=== PATIENT | male | born 1955 | race Caucasian/White ===

== ENCOUNTER 2018-01-02 13:57 | Day surgery (SDC) | payer OTHER ==
[2017-12-28 16:53] LABS: BASOPHILS % (AUTO) 0.6 % (0-1); EOSINOPHILS # (AUTO) 0.2 X10'3 (0-0.9); EOSINOPHILS % (AUTO) 3.4 % (0-6); HEMATOCRIT 39.5 % (42.0-52.0); HEMOGLOBIN 13.6 g/dl (14.0-17.9); LYMPHOCYTES # (AUTO) 1.9 X10'3 (1.1-4.8); LYMPHOCYTES % (AUTO) 28.5 % (21-51); MEAN CORPUSCULAR HEMOGLOBIN 29.4 PG (27.0-31.0); MEAN CORPUSCULAR HGB CONC 34.5 % (33.0-36.5); MEAN CORPUSCULAR VOLUME 85.2 FL (78-98); MEAN PLATELET VOLUME 7.7 FL (7.4-10.4); MONOCYTES # (AUTO) 0.6 X10'3 (0-0.9); MONOCYTES % (AUTO) 8.5 % (2-12); NEUTROPHILS # (AUTO) 3.8 X10'3 (1.8-7.7); PLATELET COUNT 257 X10'3 (140-440); RED BLOOD COUNT 4.64 X10'6 (4.70-6.10); RED CELL DISTRIBUTION WIDTH 14.1 % (11.5-14.5); WHITE BLOOD COUNT 6.5 X10'3 (4.5-11.0)
[2017-12-28 17:17] LABS: ALBUMIN 4.4 G/DL (3.4-5.0); ANION GAP 8 (8-16); BLOOD UREA NITROGEN 21 MG/DL (7-18); BUN/CREATININE RATIO 22.1 (5.4-32.0); CALCIUM 9.3 MG/DL (8.5-10.1); CHLORIDE 105 MMOL/L (99-107); CREATININE 0.95 MG/DL (0.60-1.10); GLUCOSE 91 MG/DL (70-104); SODIUM 140 MMOL/L (135-145); TOTAL CARBON DIOXIDE 27.1 MMOL/L (24-32); eGFR 80 ML/MIN
[2017-12-29 13:01] LABS: PARTIAL THROMBOPLASTIN TIME 27 SECONDS (22-32); PROTHROMBIN TIME 10.5 SECONDS (9.0-12.0)
[2018-01-02] VITALS (9 sets, daily range): BP systolic 114–151; BP diastolic 62–92
[~2018-01-02] VITALS: Ht 180.3 cm; Wt 91.7 kg
[~2018-01-02 13:57] MED LIST: ASPI-611 PO; ATOR80TA PO; CLOP75TA15 PO; GEMF600T3 PO; METO25TA6 PO; VALS80TA2 PO
[2018-01-02] MEDS ORDERED: LORazepam 0.5 MG tablet PO ONE (14:10)
[2018-01-02] MEDS ORDERED: diphenhydrAMINE 25mg capsule PO ONE (14:10)
[2018-01-02] MEDS ORDERED: normal saline 1000ml 1,000 ML IV SCH ×3 (14:10→18:05)
[2018-01-02] MEDS ORDERED: diphenhydrAMINE 25mg capsule PO PRN (14:25)
[2018-01-02] MEDS ORDERED: LORazepam 0.5 MG tablet PO PRN (14:25)
[2018-01-02] MEDS ORDERED: IBUP-75 PO (14:36)
[2018-01-02] MEDS ORDERED: NITR0.4T SL (14:36)
[2018-01-02] MEDS ORDERED: LIDOcaine 1% w/EPI 1:100,000 30ml vial (MDV) ONE (16:14)
[2018-01-02] MEDS ORDERED: iohexol 350MG/ML 100ml bottle IV ONE (16:14)
[2018-01-02] MEDS ORDERED: proCHLORperazine 10 MG/2 ml inj ONE (16:42)
[2018-01-02] MEDS ORDERED: fentaNYL/PF 50MCG/1 ML 2ML syringe ONE (16:43)
[2018-01-02] MEDS ORDERED: midazolam 2 mg/2 ml injection ONE ×2 (16:43→16:51)
[2018-01-02] MEDS ORDERED: heparin 1,000unit/ml 10ml vial 10 ML ONE (17:02)
[2018-01-02] MEDS ORDERED: clopidogrel 300mg tablet ONE (17:17)
[2018-01-02] MEDS ORDERED: ticagrelor 90mg tablet ONE (17:23)
[2018-01-02] MEDS ORDERED: HYDROcodone/acetaminophen 5mg/325mg tablet PO PRN (18:05)
[2018-01-02] MEDS ORDERED: proCHLORperazine 10 MG/2 ml inj IV PRN (18:05)
[2018-01-02] MEDS ORDERED: acetaminophen 325mg tablet PO PRN (18:05)
[2018-01-02] MEDS ORDERED: OXAZEpam 15mg capsule PO PRN (18:05)
[2018-01-02] MEDS ORDERED: HYDROcodone/acetaminophen 10/325mg tab PO PRN (18:05)
[2018-01-02] MEDS ORDERED: ondansetron/PF 4mg/2ml inj IV PRN (18:05)
== END 2018-01-02 20:05 | disposition home or self-care (01) ==
LOC: SSTAY O 13:57
PROVIDERS: ATTEND Internal Medicine Interventional Cardiology
DX: I25.110 Atherosclerotic heart disease of native coronary artery with unstable angina pectoris (principal); I10 Essential (primary) hypertension; E78.5 Hyperlipidemia, unspecified; I25.2 Old myocardial infarction; I65.23 Occlusion and stenosis of bilateral carotid arteries; Z79.1 Long term (current) use of non-steroidal anti-inflammatories (NSAID); Z86.79 Personal history of other diseases of the circulatory system; Z86.74 Personal history of sudden cardiac arrest; Z79.01 Long term (current) use of anticoagulants; Z79.82 Long term (current) use of aspirin; Z87.891 Personal history of nicotine dependence; Z79.899 Other long term (current) drug therapy; Z98.890 Other specified postprocedural states; Z95.5 Presence of coronary angioplasty implant and graft
CPT/HCPCS: 36415; 80048; 85025; 85610; 85730; 93005; 93458; 99152; 99153; A6257; C1725; C1760; C1769; C1874; C9600; J0780; J1644; J2250; J3010; J3490; J7030; Q0163; Q9967; A4620

== ENCOUNTER 2018-07-05 11:13 | Outpatient (CLI) | payer OTHER ==
[~2018-07-05 11:13] MED LIST changes: -GEMF600T3 PO; +GEMF600T4 PO; +IBUP-75 PO; +NITR0.4T SL
[2018-07-05] MEDS ORDERED: iohexol 350MG/ML 100ml bottle IV ONE (11:22)
[2018-07-05] MEDS ORDERED: iohexol 350 MG/ML 50ML vial IV ONE (11:22)
== END 2018-07-05 23:59 | disposition home or self-care (01) ==
LOC: 64 CT 11:13
PROVIDERS: ATTEND Surgery
DX: I71.4 Abdominal aortic aneurysm, without rupture (principal); I25.10 Atherosclerotic heart disease of native coronary artery without angina pectoris; I73.9 Peripheral vascular disease, unspecified
CPT/HCPCS: 75635; Q9967

== ENCOUNTER 2020-01-12 15:06 | Observation (INO) | payer OTHER ==
[~2020-01-12] VITALS: Ht 180.3 cm; Wt 83.3 kg
[2020-01-12] VITALS (10 sets, daily range): BP systolic 106–143; BP diastolic 51–102
[2020-01-12 09:53] LABS: BASOPHILS # (AUTO) 0.1 X10'3 (0-0.2); BASOPHILS % (AUTO) 1.2 % (0-1); EOSINOPHILS # (AUTO) 0.3 X10'3 (0-0.9); EOSINOPHILS % (AUTO) 5.9 % (0-6); HEMATOCRIT 41.2 % (42.0-52.0); HEMOGLOBIN 14.3 g/dl (14.0-17.9); LYMPHOCYTES # (AUTO) 1.7 X10'3 (1.1-4.8); MEAN CORPUSCULAR HGB CONC 34.7 g/dL (33.0-36.5); MEAN CORPUSCULAR VOLUME 83.6 FL (78-98); MEAN PLATELET VOLUME 7.9 FL (7.4-10.4); MONOCYTES # (AUTO) 0.6 X10'3 (0-0.9); MONOCYTES % (AUTO) 9.8 % (2-12); NEUTROPHILS % (AUTO) 53.1 % (42-75); PLATELET COUNT 241 X10'3 (140-440); RED BLOOD COUNT 4.93 X10'6 (4.70-6.10); RED CELL DISTRIBUTION WIDTH 14.2 % (11.5-14.5); WHITE BLOOD COUNT 5.6 X10'3 (4.5-11.0)
[2020-01-12 10:03] LABS: ALBUMIN 4.4 G/DL (3.4-5.0); ANION GAP 10 (8-16); BLOOD UREA NITROGEN 19 MG/DL (7-18); BUN/CREATININE RATIO 15.2 (5.4-32.0); CALCIUM 9.7 MG/DL (8.5-10.1); CHLORIDE 104 MMOL/L (99-107); CREATININE 1.25 MG/DL (0.60-1.10); GLUCOSE 110 MG/DL (70-104); PARTIAL THROMBOPLASTIN TIME 28 SECONDS (22-32); POTASSIUM 3.1 MMOL/L (3.5-5.1); SODIUM 143 MMOL/L (135-145); TOTAL CARBON DIOXIDE 29.1 MMOL/L (24-32); eGFR 58 ML/MIN
[~2020-01-12 15:06] MED LIST changes: -GEMF600T4 PO; +GEMF600T89 PO
[2020-01-12] MEDS ORDERED: normal saline 1,000 ML IV SCH (15:25)
[2020-01-12] MEDS ORDERED: diphenhydrAMINE 25mg capsule PO PRN (15:25)
[2020-01-12] MEDS ORDERED: LORazepam 0.5 MG tablet PO PRN (15:25)
[2020-01-12] MEDS ORDERED: GEMF600T89 PO (15:31)
[2020-01-12] MEDS ORDERED: ROSU40TA PO (15:31)
[2020-01-12] MEDS ORDERED: CLOP75TA15 PO (15:31)
[2020-01-12] MEDS ORDERED: LOSA100T57 PO (15:31)
[2020-01-12] MEDS ORDERED: CHLO25TA10 PO (15:31)
[2020-01-12] MEDS ORDERED: heparin 1,000unit/ml 10ml vial 10 ML ONE (15:44)
[2020-01-12] MEDS ORDERED: iohexol 350MG/ML 100ml bottle IV ONE ×2 (15:44→16:43)
[2020-01-12] MEDS ORDERED: LIDOcaine 1% (10mg/ml)w/preservative injection 20ml MDV ONE (15:44)
[2020-01-12] MEDS ORDERED: phenylephrine 10mg/ml inj. ONE (15:44)
[2020-01-12] MEDS ORDERED: heparin 1,000 UNITS/NS 500ml 500 ML ONE (15:45)
[2020-01-12] MEDS ORDERED: midazolam 2 mg/2 ml injection ONE (15:55)
[2020-01-12] MEDS ORDERED: DOPamine 400mg/D5W 250ml 250 ML IV ONE (15:56)
[2020-01-12] MEDS ORDERED: atropine 0.1mg/ml 10ml syringe ONE (16:44)
[2020-01-12] MEDS ORDERED: clopidogrel 300mg tablet ONE (16:55)
--- NOTE | 2020-01-12 17:20 | NUR ---
Patient arrived to the unit accompanied by short stay personnel. Patient's groin site clear and soft. at the bedside. All belongings accounted for. Telemetry monitoring started. Post op vitals being obtained, will continue to monitor.
[2020-01-12] MEDS ORDERED: hydrALAZINE 20mg/ml inj. IV PRN (17:50)
[2020-01-12] MEDS ORDERED: HYDROcodone/acetaminophen 10/325mg tab PO PRN (17:50)
[2020-01-12] MEDS ORDERED: HYDROcodone/acetaminophen 5mg/325mg tablet PO PRN (17:50)
[2020-01-12] MEDS ORDERED: acetaminophen 325mg tablet PO PRN (17:50)
[2020-01-12] MEDS ORDERED: pseudoephedrine 30mg tablet PO PRN (17:50)
[2020-01-12] MEDS ORDERED: OXAZEpam 15mg capsule PO PRN (17:50)
--- NOTE | 2020-01-12 18:24 | NUR ---
Patient in room . I have received report from HEAVEN Melendez and had the opportunity to ask questions and assume patient care.
--- NOTE | 2020-01-12 18:25 | NUR ---
Problems reprioritized. Patient report given, questions answered & plan of care reviewed with Eleanor COLLADO.
--- NOTE | 2020-01-12 18:25 | NUR ---
Patient in room . I have received report from Nora COLLADO and had the opportunity to ask questions and assume patient care.
--- NOTE | 2020-01-12 19:06 | NUR ---
Upon assessing patients right groin cath site, bleeding and small hematoma formation was noted. Fem stop has been placed on patient right groin cath sight with 60 lbs of pressure. Notified Dr. Mills film rental clerk, he is aware and is ok with this intervention. We will continue to assess cath site.
[2020-01-12] MEDS ORDERED: potassium CL 10mEq/100ml bag 100 ML IV PRN ×2 (19:35)
[2020-01-12] MEDS ORDERED: potassium Cl 20 mEq SR tablet PO PRN (19:35)
[2020-01-12] MEDS: K and/or MAG REPLACEMENT MC SCH (20:00)
[2020-01-12] MEDS: potassium Cl 20 mEq SR tablet PO PRN (21:10)
--- NOTE | 2020-01-13 | NUR ---
Femstop removed from pt. No bleeding at site with removal. Pt sat up with no symptoms and then stood up with nursing at bedside. No symptoms. Pt walked around the unit. Groin site reassessed, no s/sx of bleeding. Will continue to closely monitor.
--- NOTE | 2020-01-13 | NUR ---
Fem stop removed. No signs of bleeding noted. No spread of hematoma or retroperitoneal bleeding noted. Patient BP 113/55. Patient is alert, and walked around the unit without dizziness or lightheadedness. Patient back to bed, will continue to monitor.
[2020-01-13 01:19] VITALS: BP 113/55
[2020-01-13] MEDS: potassium Cl 20 mEq SR tablet PO PRN ×2 (01:23→05:24)
[2020-01-13 02:00] VITALS: BP 114/55
--- NOTE | 2020-01-13 05:26 | NUR ---
I agree with all documentation and medication administration performed by orienting registered nurse Radha.
[2020-01-13] MEDS ORDERED: nitroGLYCERIN 0.4mg SUBLingual tab SL PRN (06:05)
--- NOTE | 2020-01-13 06:07 | NUR ---
Problems reprioritized. Patient report given, questions answered & plan of care reviewed with Nora COLLADO .
--- NOTE | 2020-01-13 06:09 | NUR ---
Problems reprioritized. Patient report given, questions answered & plan of care reviewed with HEAVEN Melendez.
--- NOTE | 2020-01-13 06:23 | NUR ---
Patient in room PCU 3019. I have received report from Eleanor COLLADO and had the opportunity to ask questions and assume patient care.
[2020-01-13] MEDS ORDERED: metoprolol tartrate 25mg tablet PO SCH (08:00)
[2020-01-13] MEDS ORDERED: losartan 50mg tablet PO SCH (08:00)
[2020-01-13] MEDS ORDERED: chlorthalidone 25mg tablet PO SCH (08:00)
[2020-01-13] MEDS: K and/or MAG REPLACEMENT MC SCH (08:00)
[2020-01-13] MEDS ORDERED: clopidogrel 75mg tablet PO SCH (08:00)
[2020-01-13] MEDS ORDERED: gemfibrozil 600mg tablet PO SCH (08:00)
[2020-01-13] MEDS ORDERED: atorvastatin 20mg tablet PO SCH (08:00)
[2020-01-13] MEDS ORDERED: aspirin 81mg tab.chew PO SCH (08:30)
--- NOTE | 2020-01-13 08:30 | NUR ---
Offered to administer patient's morning medication before his discharge, he declined and stated he "would rather take them when I get home for the sake of time"
--- NOTE | 2020-01-13 08:46 | NUR ---
Patient stable for discharge per MD order. All necessary education and information reviewed with patient before signing necessary paperwork. IV discontinued with catheter in tact, quality assurance monitor chassis removed and returned, patient belongings packed up and patient wheeled to lobby by Neeraj VAZQUEZ. His will pick him up. No new Rx.
== END 2020-01-13 08:45 | disposition home or self-care (01) ==
LOC: SSTAY O 15:06 → PCU 3S 19:32 → INTOOBSV 19:32
PROVIDERS: ADMIT Internal Medicine Interventional Cardiology; ATTEND Internal Medicine Interventional Cardiology
DX: I65.23 Occlusion and stenosis of bilateral carotid arteries (principal); I10 Essential (primary) hypertension; I25.10 Atherosclerotic heart disease of native coronary artery without angina pectoris; I25.2 Old myocardial infarction; I71.4 Abdominal aortic aneurysm, without rupture; I71.9 Aortic aneurysm of unspecified site, without rupture; E78.49 Other hyperlipidemia; F17.200 Nicotine dependence, unspecified, uncomplicated; Z95.5 Presence of coronary angioplasty implant and graft; Z79.82 Long term (current) use of aspirin; Z79.02 Long term (current) use of antithrombotics/antiplatelets; Z79.899 Other long term (current) drug therapy
CPT/HCPCS: 36415; 37215; 80048; 85025; 85610; 85730; 93005; C1725; C1769; C1876; C1884; C1887; C1894; G0378; J0461; J1265; J1644; J2001; J2250; J2370; J7030; Q0163; Q9967; 99152; 99153; A4620; A6258

== ENCOUNTER 2023-02-16 11:21 | Emergency (ER) | payer MEDICARE, OTHER ==
[~2023-02-16] VITALS: Ht 180.3 cm; Wt 88.0 kg
[~2023-02-16 11:21] MED LIST changes: -ATOR80TA PO; +CHLO25TA10 PO; -IBUP-75 PO; +LOP25T PO; +LOSA100T58 PO; -METO25TA6 PO; +ROSU40TA PO; -VALS80TA2 PO
[2023-02-16 11:51] LABS: CLARITY,URINE CLOUDY (Clear); COLOR,URINE YELLOW (Yellow); GLUCOSE, URINE NEGATIVE (Neg); KETONES,URINE NEGATIVE (Neg); LEUKOCYTE ESTERASE ,URINE MODERATE (Neg); NITRITES, URINE NEGATIVE (Neg); OCCULT BLOOD,URINE LARGE (Neg); PH,URINE 5.5 (4.8-8.0); PROTEIN,URINE 100 mg/dl (Neg); UROBILINOGEN,URINE 0.2 E.U/dL (0.2-1.0)
[2023-02-16 11:58] LABS: UA COLLECTION TYPE CLN CATCH MIDSTREAM
[2023-02-16 11:59] LABS: WBC,URINE 50-100 /HPF (0-4)
[2023-02-16 12:00] LABS: BACTERIA,URINE 3+ /HPF (Neg); MUCUS STRANDS FEW /LPF (Neg); RENAL CELLS, URINE FEW /HPF; SQUAMOUS EPITHELIAL CELL,UR MODERATE /LPF (FEW); TRANSITIONAL EPI CELLS,URINE MODERATE /HPF
[2023-02-16] MEDS ORDERED: CEPH-585 PO (14:00)
[2023-02-16 14:23] VITALS: BP 133/90
== END 2023-02-16 14:27 | disposition home or self-care (01) ==
LOC: ER 11:21
DX: N39.0 Urinary tract infection, site not specified (principal)
CPT/HCPCS: 81001; 87077; 87088; 87186; 99283